=== PATIENT | male | born 1970 | race Caucasian/White ===

== ENCOUNTER 2024-07-03 11:59 | Emergency (ER) | payer SELFPAY ==
[~2024-07-03] VITALS: Ht 172.7 cm; Wt 91.0 kg
[2024-07-03 12:24] VITALS: O2SAT 97
[2024-07-03 13:59] VITALS: BP 155/97; PULSE 102; RESP 20; TEMP 36.61404; O2SAT 97
== END 2024-07-03 18:25 | disposition home or self-care (01) ==
LOC: ER 11:59
DX: I10 Essential (primary) hypertension (principal); Z90.49 Acquired absence of other specified parts of digestive tract; Z98.890 Other specified postprocedural states
CPT/HCPCS: 99283; A4663; 99281